=== PATIENT | male | born 1970 | race Caucasian/White ===

== ENCOUNTER 2018-07-07 20:08 | Observation (INO) | payer BC ==
[~2018-07-07] VITALS: Ht 172.7 cm; Wt 59.0 kg
[~2018-07-07 20:08] MED LIST: CLEOCIN HCL300 MG PO; NO HOME MEDICATIONS; NORCO 325 MG-51 TAB PO
[2018-07-07 21:38] LABS: BASO # 0.1 (0.0-0.2); BASO % 0.4 % (0.0-2.0); EOS # 0.1 (0.0-0.7); HEMOGLOBIN 16.7 g/dl (13.5-18.0); LYMPH # 1.4 (1.2-3.4); LYMPH % 12.3 % (20.0-51.0); MEAN CELL VOLUME 88 fl (80.0-100.0); MEAN CORPUSCULAR HEMOGLOBIN 30 pg (27.0-31.0); MEAN CORPUSCULAR HGB CONC 34 g/dl (33.0-37.0); MEAN PLATELET VOLUME 10.2 fl (7.4-10.4); MONO # 0.9 (0.1-0.6); PLATELET COUNT 207 K/mm3 (130-400); RED BLOOD COUNT 5.55 M/mm3 (4.20-5.60); REDCELL DISTRIBUTION WIDTH-CV 13.3 % (11.5-14.5)
[2018-07-07 21:53] LABS: ALBUMIN 4.2 gm/dL (3.5-5.0); BILIRUBIN,TOTAL 1.1 mg/dL (0.0-1.0); C-REACTIVE PROTEIN 1.3 mg/dL (0.0-0.9); CALCIUM 9.3 mg/dL (8.4-10.2); CREATININE, serum 0.73 (0.66-1.25); POTASSIUM 3.5 mmol/L (3.4-5.0); TOTAL PROTEIN 7.9 gm/dL (6.4-8.2)
[2018-07-08] VITALS (7 sets, daily range): BP systolic 126–171; BP diastolic 79–90; PULSE 35–88; TEMP 97.9–98.6
--- NOTE | 2018-07-08 04:14 | NUR ---
Patient resting well since admission. States pain is better controlled now that he is here in the hospital. Denies any needs at this time.
--- NOTE | 2018-07-08 06:58 | NUR ---
Report given to SURINDER Mitchell.
--- NOTE | 2018-07-08 08:30 | NUR ---
Patient in bed resting. Alert and oriented x3. Shift assessment complete. IV fluids infusing via pump. Denies further needs at this time.
--- NOTE | 2018-07-08 11:21 | NUR ---
First visit from the electronic gaming device supervisor. No needs right now.
--- NOTE | 2018-07-08 16:30 | NUR ---
SW met with patient to discuss discharge planning. Patient lives independently at home with his . Patient does not have a PCP and is not interested in getting set up with one. Patient obtains prescriptions from [facility]. Patient reports no DME or home health serives used. Patient does not have a DPOA and is not interested in obtaining one at this time. SW does not anticipate any discharge needs.
--- NOTE | 2018-07-08 18:34 | NUR ---
Patient independent in room. Has requested medications for midepigastric pain through the day. Medications given per orders. Denies further needs at this time. Will report off to plant operator/shift supervisor.
--- NOTE | 2018-07-08 19:45 | NUR ---
Pt. laying in bed. Pt. is A&OX3, assessment complete. IV to rt. ac patent, IV fluids infusing per orders. Pt. reports pain at a 8 on pain scale, gave pain meds per orders. Pt. denies further needs, call light within reach.
[2018-07-09] VITALS (11 sets, daily range): BP systolic 115–151; BP diastolic 80–95; PULSE 81–108; TEMP 97.8–98.4
--- NOTE | 2018-07-09 05:48 | NUR ---
Pt. slept off and on through the night. Pt. remains A&OX3. IV to rt. AC patent. Pt. took a shower this am. Consent for surgery signed. Pt. denies further needs, call light within reach.
--- NOTE | 2018-07-09 06:35 | NUR ---
bedside shift report received from SURINDER Arevalo and patient is going to surgery at this time
[2018-07-09 07:33] LABS: ALANINE AMINOTRANSFERASE < 6 U/L (21-72); ALBUMIN 3.9 gm/dL (3.5-5.0); ALKALINE PHOSPHATASE 85 U/L (50-136); ANION GAP 11 mmol/L (7-16); AST,SGOT 22 U/L (15-37); BILIRUBIN,TOTAL 1.1 mg/dL (0.0-1.0); BLOOD UREA NITROGEN 8 mg/dL (9-20); CALCIUM 9.2 mg/dL (8.4-10.2); CARBON DIOXIDE 26 mmol/L (22-30); CHLORIDE 100 mmol/L (98-107); CREATININE, serum 0.79 (0.66-1.25); GLUCOSE 76 mg/dL (74-106); POTASSIUM 4.2 mmol/L (3.4-5.0); SODIUM 137 mmol/L (137-145); TOTAL PROTEIN 7.4 gm/dL (6.4-8.2)
--- NOTE | 2018-07-09 08:54 | NUR ---
remains in surgery
--- NOTE | 2018-07-09 09:50 | NUR ---
returned to room from PACU per bed, awake and alert but sleepy, abdomen with 4 lap sites with carr set and are CD&I, IV infusing per dial-a-flow and set at 125ml/hr, denies needs at this time
--- NOTE | 2018-07-09 10:00 | NUR ---
appears to be dozing between checks, full assessment completed, see shift assessment for further info
--- NOTE | 2018-07-09 10:30 | NUR ---
continues to appear to sleep between checks
--- NOTE | 2018-07-09 11:30 | NUR ---
awake now and visiting with female visitor, states he is ready for something to eat, instructed on ordering and verbalizes understanding
--- NOTE | 2018-07-09 12:30 | NUR ---
had some applesauce and pudding and tolerated well
--- NOTE | 2018-07-09 13:30 | NUR ---
appears to be dozing, denies pain or needs
--- NOTE | 2018-07-09 14:46 | NUR ---
awake now and watching TV, IV to INT, assisted up to bathroom and voided qs, will sit up on side of bed, denies needs
--- NOTE | 2018-07-09 15:25 | NUR ---
INT discontinued, discharge instructions given to patient and verbalizes understanding
--- NOTE | 2018-07-09 15:35 | NUR ---
dishcharged ambulatory
== END 2018-07-09 15:35 | disposition home or self-care (01) ==
LOC: COL.ER 20:08 → SURG 23:52
PROVIDERS: Emergency Medicine; ADMIT Surgery
DX: F17.210 Nicotine dependence, cigarettes, uncomplicated (principal); K80.12 Calculus of gallbladder with acute and chronic cholecystitis without obstruction
CPT/HCPCS: C9113; G0378; J0330; J0360; J0690; J1100; J1885; J1956; J2270; J2405; J2704; J3010; J7030; J7120; Q9967